=== PATIENT | male | born 1970 | race Caucasian/White ===

== ENCOUNTER 2025-03-12 09:47 | Outpatient (REF) | payer OTHER, SELFPAY ==
[2025-03-12 13:36] LABS: Hematocrit 42.0 % (42.0-52.0); Hemoglobin 14.8 g/dl (14.0-18.0); Mean Corpuscular HGB Conc 35.2 g/dl (31.0-36.0); Mean Corpuscular Hemoglobin 31.5 pg (27.0-33.0); Mean Corpuscular Volume 89.4 fL (80.0-98.0); NRBC Abs Auto 0.000 X10*3/uL (0.0-0.012); NRBC Pct Auto 0.0 /100WBC (0.0-0.2); Platelet Count 232 X10*3/uL (160-400); Red Blood Count 4.70 X10*6/uL (4.60-5.80); White Blood Count 6.7 X10*3/uL (4.8-10.8)
[2025-03-12 13:59] LABS: Alanine Aminotransferase 60 U/L (0-40); Albumin Level 4.4 g/dL (3.5-5.0); Alkaline Phosphatase 64 U/L (39-117); Anion Gap 11 (12-20); Aspartate Amino Transferase 43 U/L (5-37); Blood Urea Nitrogen 19 mg/dL (9-16); Calcium 9.2 mg/dL (8.4-10.2); Carbon Dioxide 25 mmol/L (22-29); Chloride 106 mmol/L (96-108); Estimated Glomerular Filt Rate > 60; Potassium 4.3 mmol/L (3.3-5.1); Sodium 138 mmol/L (135-145); Total Protein 7.5 g/dL (6.5-8.0)
[2025-03-12 14:14] LABS: Ferritin 179 ng/mL (20-250)
[2025-03-12 14:30] LABS: Folate 12.0 ng/mL (> or = 4.0); Vitamin B12 395 pg/mL (200-900)
== END 2025-03-12 09:48 | disposition home or self-care (01) ==
LOC: HO.HKASLDS 09:47
PROVIDERS: PCP Internal Medicine; Visit Provider Physician Assistant Medical
DX: G47.19 Other hypersomnia (principal); R53.82 Chronic fatigue, unspecified; Z13.21 Encounter for screening for nutritional disorder
CPT/HCPCS: 36415; 80053; 82306; 82607; 82728; 82746; 83090; 83921; 84443; 85027

== ENCOUNTER 2025-03-12 09:47 | Outpatient (AMB) | payer OTHER, SELFPAY ==
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
[2025-03-12 10:14] VITALS: BP 116/78; PULSE 84; O2SAT 97; BMI 30.6
--- OUTSIDE RECORDS SUMMARY | 2025-03-12 10:24 | XMS_ITS | Clinical Summary ---
Author Organization [facility] Address [address] [place] [phone] Phone Care Team Providers Care Review Appraiser Name Role Phone Unknown, Unknown Primary Care Provider Vanessavai lable Allergies No known active allergies Medications No known medications Active Problems Patient Care Coordination No te Formatting of this note migh t be different from the original. 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 No additional problems on file Immunizations Immunization Administration Dates Next Due Tdap 07/01/2017 Social History Tobacco Use Types Packs/Day Years Used Date Smoking Tobacco: Former Cigarettes Q uit: 07/01/2014 Smokeless Tobacco: Never Alcohol Use Standard Drinks/Week Comments Yes 5 (1 standard drink = 0.6 oz pur e alcohol) 5 drinks a week Sex and Gender Information Value Date Recorded Sex Assigned at Male 08/22/2017 9:38 AM EST Legal Sex Male 11:29 AM EST Gender Identity Male 08/22/2017 9:38 AM EST Sexual Orientation Straight 08/22/2017 9: 38 AM EST Last Filed Vital Signs Vital Sign Reading Time Taken Comments Blood Pressure 112/67 07/01/2017 2:13 PM EST Pulse 78 07/01/2017 2:13 PM EST Temperature 36.5 C (97.7 F) 07/01/2017 11:44 AM EST Respiratory Rate 18 07/01/2017 2:13 PM EST Oxygen Saturation 99% 07/01/2017 11:44 AM EST Inhaled Oxygen Concentration - - Weight 85.7 kg (189 lb) 07/01/2017 11:44 AM EST Height 175.3 cm (5' 9 ) 07/01/2017 11:44 AM EST Body Mass Index 27.91 07/01/2017 11:44 AM EST Plan of Treatment Not on file Medical Devices Not on file Care Teams Review Appraiser Relationship Specialty Start Date End Date Unknown, Unknown, MD PCP - General 07/01/17 Additional Source Comments The information contained in this document represents components of the legal health record. It is not the complete legal health record.[facility]
== END 2025-03-12 11:11 | disposition home or self-care (01) ==
LOC: HO.HSMS 09:48
PROVIDERS: PCP Internal Medicine; Visit Provider Physician Assistant Medical
DX: G47.19 Other hypersomnia (principal); R53.82 Chronic fatigue, unspecified
CPT/HCPCS: 99204

== ENCOUNTER 2025-06-12 09:35 | Outpatient (AMB) | payer OTHER, SELFPAY ==
[2025-06-12 09:42] VITALS: BP 132/86; PULSE 77; O2SAT 96; BMI 30.6
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
--- OUTSIDE RECORDS SUMMARY | 2025-06-12 11:27 | XMS_ITS | Clinical Summary ---
Author Organization [facility] Address [address] [place] [phone] Phone Care Team Providers Care Gold Layer Name Role Phone Unknown, Unknown Primary Care [...] Medical Devices Not on file Care Teams Gold Layer Relationship Specialty Start Date End Date Unknown, Unknown, MD PCP - General 07/01/17 Additional Source Comments The information contained in this document represents components of the legal health record. It is not the complete legal health record.[facility]
== END 2025-06-12 10:32 | disposition home or self-care (01) ==
LOC: HO.HSMC 09:36
PROVIDERS: PCP Internal Medicine; Visit Provider Physician Assistant Medical
DX: G47.19 Other hypersomnia (principal); R53.82 Chronic fatigue, unspecified; G47.00 Insomnia, unspecified; G47.8 Other sleep disorders
CPT/HCPCS: 99214

== ENCOUNTER → 2025-07-18 10:46 | Outpatient (REF) | payer OTHER, SELFPAY ==
--- OUTSIDE RECORDS SUMMARY | 2025-07-18 13:28 | XMS_ITS | Clinical Summary ---
Author Organization [facility] Address [address] [place] [phone] Phone Care Team Providers Care Environmental Monitoring Technician Name Role Phone Unknown, Unknown Primary Care [...] Medical Devices Not on file Care Teams Environmental Monitoring Technician Relationship Specialty Start Date End Date Unknown, Unknown, MD PCP - General 07/01/17 Additional Source Comments The information contained in this document represents components of the legal health record. It is not the complete legal health record.[facility]
== END ==
LOC: HO.SL 10:46
PROVIDERS: PCP Internal Medicine; Visit Provider Physician Assistant Medical
DX: G47.19 Other hypersomnia (principal)
CPT/HCPCS: 95806

== ENCOUNTER → 2025-07-18 10:56 | Outpatient (BNV) | payer OTHER, SELFPAY | PROVIDERS: PCP Internal Medicine; Visit Provider Psychiatry & Neurology Neurology | DX: G47.33 Obstructive sleep apnea (adult) (pediatric) (principal) | CPT/HCPCS: 95806 ==